=== PATIENT | female | born 1975 | race Caucasian/White ===

== ENCOUNTER 2019-02-15 18:02 | Emergency (ER) | payer BC, OTHER ==
[2019-02-15 18:15] VITALS: BP 126/70
--- NOTE | 2019-02-15 18:51 | UC ---
Knee Pain HPI - HPI Summary HPI Summary: 43 y/o female presents to the urgent care c/o Rt knee pain and mild swelling over the patella s/p slipping on the wet floor and falling on top of her Rt patella at work around 12:30N. Pt report Hx of Meniscus repair surgery w/ Dr Soto on . Pt report she applied ice and elevated, but has not taken any medication to alleviate pain and she usually like to take Ibuprofen when she had the surgery. She still doing physical therapy for her Rt knee. This morning she had a session. Pain is 6/10 w/o any radiation and mild numbness over the patella and mil bruise. Pt is walking w/ limping. Pt denies fever, SOB, calf pain, abdominal pain, N/V/d. - History of Current Complaint Chief Complaint: UCLowerExtremity Stated Complaint: WORK RELATED KNEE INJURY Time Seen by Provider: 02/15/19 18:49 Hx Obtained From: Patient Hx Last Menstrual Period: 02/09/2019 ?: No Onset/Duration: Sudden Onset, Lasting Hours - Pt slipped and fell at works and landed on her Rt knee about 7hrs ago, Still Present Severity Initially: Moderate Severity Currently: Moderate Pain Intensity: 6 Pain Scale Used: 0-10 Numeric Character: Sharp - w/ movment Aggravating Factor(s): Movement, Prolonged Standing Alleviating Factor(s): Rest, Position, Cold Associated Signs And Symptoms: Positive: Swelling - mild over patella, Bruising , Numbness - mild Able to Bear Weight: Yes Related History: Similar Episode/Dx as - Pt w/ Hx of Rt meniscus repair in 2018 w/ Dr Soto - Risk Factors Septic Arthritis Risk Factor: Negative Gout Risk Factor: Negative - Allergies/Home Medications Allergies/Adverse Reactions: Allergies Allergy/AdvReac Type Severity Reaction Status Date / Time No Known Allergies Allergy Verified 02/15/19 18:08 Home Medications: Home Medications Phentermine HCl 15 mg PO DAILY 02/15/19 [History Confirmed 02/15/19] PMH/Surg Hx/FS Hx/Imm Hx Previously Healthy: Yes Cardiovascular History: Hypertension - Surgical History Surgical History: Yes Surgery Procedure, Year, and Place: cholecystectomy,2007, [facility]. left knee surgery,1992, [facility]. tonsillectomy, adenoiectomy age 13. R knee meniscus repair 2019 - Family History Known Family History: Positive: Hypertension Negative: Respiratory Disease - Social History Occupation: Employed Full-time Lives: With Family Alcohol Use: Weekly Alcohol Amount: holidays Substance Use Type: None Smoking Status (MU): Never Smoked Tobacco Have You Smoked in the Last Year: No Review of Systems All Other Systems Reviewed And Are Negative: Yes Constitutional: Positive: Negative Skin: Positive: Bruising - mild over patella w/ mild swelling too s/p fall Eyes: Positive: Negative ENT: Positive: Negative Respiratory: Positive: Negative Cardiovascular: Positive: Negative Gastrointestinal: Positive: Negative Genitourinary: Positive: Negative Motor: Positive: Negative Neurovascular: Positive: Negative Musculoskeletal: Positive: Decreased ROM - RT knee, Other: - Rt knee pain s/p fall at work Neurological: Positive: Negative Psychological: Positive: Negative Is Patient Immunocompromised?: No Physical Exam - Summary Physical Exam Summary: Vital Signs Reviewed: Yes General: well developed, well nourished obese female male sitting in the examining table w/o any apparent distress Eyes: Positive: Conjunctiva Clear - PERRLA, EOMI, fundi grossly normal ENT: Positive: Normal ENT inspection, Hearing grossly normal, Pharynx normal, TMs normal Neck: Positive: Supple, Nontender, No Lymphadenopathy Respiratory: Positive: Chest nontender, Lungs clear, Normal breath sounds, No respiratory distress Cardiovascular: Positive: RRR, No Murmur, Pulses Normal, Brisk Capillary Refill Abdomen Description: Positive: Nontender, No Organomegaly, Soft. Negative: CVA Tenderness (R), CVA Tenderness (L) Bowel Sounds: Positive: Present Musculoskeletal: Positive: Strength Intact, No Edema, Rt Knee: Pt is able to bear weight and ambulate with limping. No surface trauma, mild soft tissue swelling w/ a midl bruise over the patella, no obvious effusion. No overlying erythema or warmth. The R knee is without obvious asymmetry or deformity when compared with the L knee. discrete scars over patella from previous laparoscopic meniscus repair surgery on 06/2018. Decreased ROM of RT knee due to pain, specially on flexion. Tenderness to palpation of the patella, no effusion or ballottement. No tenderness over the infrapatellar tendon. Point tenderness over the medial joint line, No tenderness over the medial or lateral tibial plateaus. No tenderness over the proximal fibular head, No tenderness, fullness or mass of the popliteal fossa. No quadriceps tenderness. No laxity of the ACL. PCL, MCL, or LCL. no collateral ligament laxity to valgus or varus stress. Negative La/Drawer sign. Negative Joshua. Distal motor and neurovascular status intact. Neurological Exam: Normal Psychological Exam: Normal Skin Exam: Normal Triage Information Reviewed: Yes Vital Signs: Initial Vital Signs Temp 99.0 F 02/15/19 18:10 Pulse 92 02/15/19 18:10 Resp 18 02/15/19 18:10 BP 126/70 02/15/19 18:10 Pulse Ox 97 02/15/19 18:10 Knee Pain Course/Dx - Course Course Of Treatment: 43 y/o female presents to the urgent care c/o Rt knee pain and mild swelling over the patella s/p slipping on the wet floor and falling on top of her Rt patella at work around 12:30N. Pt report Hx of Meniscus repair surgery w/ Dr Soto on . Pt report she applied ice and elevated, but has not taken any medication to alleviate pain and she usually like to take Ibuprofen when she had the surgery. She still doing physical therapy for her Rt knee. This morning she had a session. Pain is 6/10 w/o any radiation and mild numbness over the patella and mil bruise. Pt is walking w/ limping. Pt denies fever, SOB, calf pain, abdominal pain, N/V/d. Hx obtained. Pt w/ Hx of meniscus repair surgery in 06/2018 w/ Dr Soto. Rt knee X-ray ordered, Impression: Soft tissue swelling around patella, no acute fracture observed when compared w/ previous image from 05/[address] Garsia . Final reading still pending. Pt will be notified tomorrow of final reading. Pt most likely with a RT knee Sprain. Pt knee immobilized with knee immobilizer. Pt advised to continue taken Ibuprofen PO to alleviate symptoms. Pt has crutches at home and advised to use them to avoid weight bearing. Pt advised RICE, take medication for pain and to f/u with her Orthopedic DR Soto tomorrow since she states she has an appt w/ her. Pt understood and agreed and left the clinic ambulating. - Differential Dx/Diagnosis Differential Diagnosis/HQI/PQRI: Contusion, Dislocation, Fracture (Closed), Sprain, Strain, Tendonitis, Other - meniscus tear Provider Diagnosis: Acute pain of right knee, Right knee injury Discharge ED - Sign-Out/Discharge Documenting (check all that apply): Patient Departure - d/c home All imaging exams completed and their final reports reviewed: No - Discharge Plan Condition: Stable Disposition: HOME Patient Education Materials: Knee Pain (ED) Referrals: Rachel Burns PA [Primary Care Provider] - 1 Day Eneida Soto MD [Medical Doctor] - 1 Day Additional Instructions: 1-Please continue taken Ibuprofen PO q6-8hrs prn after meals ad directed to alleviate pain and swelling. 2-Please apply ice, keep your knee immobilized with the splint. use the crutches you have at home to avoid weight bearing. Elevate your knee and avoid strenuous exercise or standing for long periods of time. 3- Please f/u with your Orthopedic Dr Soto as soon as possible for further evaluation and treatment. - Billing Disposition and Condition Condition: STABLE Disposition: Home
[2019-02-15] MEDS ORDERED: Ibuprofen TAB* 400 MG PO ONE (19:08)
--- NOTE | 2019-02-16 07:55 | UC ---
- Progress Note Progress Note: wet read correct Course/Dx - Diagnoses Provider Diagnoses: Acute pain of right knee, Right knee injury Discharge ED - Sign-Out/Discharge Documenting (check all that apply): Post-Discharge Follow Up All imaging exams completed and their final reports reviewed: Yes - Discharge Plan Condition: Stable Disposition: HOME Patient Education Materials: Knee Pain (ED) Referrals: Eneida Soto MD [Medical Doctor] - 1 Day Rachel Burns PA [Primary Care Provider] - 1 Day Additional Instructions: 1-Please continue taken Ibuprofen PO q6-8hrs prn after meals ad directed to alleviate pain and swelling. 2-Please apply ice, keep your knee immobilized with the splint. use the crutches you have at home to avoid weight bearing. Elevate your knee and avoid strenuous exercise or standing for long periods of time. 3- Please f/u with your Orthopedic Dr Soto as soon as possible for further evaluation and treatment. - Billing Disposition and Condition Condition: STABLE Disposition: Home
== END 2019-02-15 19:50 | disposition home or self-care (01) ==
LOC: UCEAST 18:02
DX: S89.91XA Unspecified injury of right lower leg, initial encounter (principal); W01.0XXA Fall on same level from slipping, tripping and stumbling without subsequent striking against object, initial encounter; Y92.89 Other specified places as the place of occurrence of the external cause; I10 Essential (primary) hypertension
CPT/HCPCS: 99211; A9270-GY; G0463